=== PATIENT | female | born 1955 | race Caucasian/White ===

== ENCOUNTER 2022-07-25 14:42 | Inpatient (IN) | payer MEDICARE, OTHER ==
[~2022-07-25] VITALS: Ht 162.6 cm; Wt 20.2 kg
[2022-07-25] MEDS ORDERED: AZITHROMYCIN 500 MG in DEXT 5% WATER 250 ML IV STA (16:40)
[2022-07-25] MEDS ORDERED: CEFTRIAXONE 1 G PREMIX 50 ML IV ONE (16:45)
[2022-07-25] MEDS ORDERED: AZITHROMYCIN 500MG/250ML 250 ML IV NR (17:00)
[2022-07-25] MEDS ORDERED: SODIUM CHLORIDE 0.9% 1,000 ML IV ONE (17:15)
[2022-07-25] MEDS ORDERED: DIPHENHYDRAMINE 50MG/ML VIAL IV PRN (17:45)
[2022-07-25] MEDS ORDERED: ONDANSETRON HCL 4MG/2ML INJ IV PRN (17:45)
[2022-07-25] MEDS ORDERED: ACETAMINOPHEN 325MG TABLET PO PRN (17:45)
[2022-07-25] MEDS ORDERED: SODIUM CHLORIDE 0.9% 1,000 ML IV SCH (17:45)
[2022-07-25] MEDS ORDERED: CLONIDINE 0.1MG TABLET PO PRN (17:45)
[2022-07-25] MEDS ORDERED: IPRATROPIUM/ALBUTEROL 0.5-3(2.5)MG/3ML NEB HHN PRN (17:45)
[2022-07-25] MEDS ORDERED: CEFTRIAXONE 1 G PREMIX 50 ML IV SCH (17:45)
[2022-07-25 18:40] LABS: CHLORIDE 123 mEq/L (98-107)
[2022-07-25 18:41] LABS: HEMATOCRIT. 26.9 % (36.0-48.0); HEMOGLOBIN. 8.1 g/dL (12.0-16.0); MEAN CORPUSCULAR HEMOGLOBIN 30.8 pg (28.0-32.0); MEAN PLATELET VOLUME 12.4 fl (7.4-10.4); RED BLOOD CELL COUNT 2.61 mill/uL (4.2-5.4)
[2022-07-25 18:50] LABS: PLATELET 8 x1000/uL (130-400)
[2022-07-25 19:05] LABS: D-DIMER 20.09 mg/L FEU (<0.50); INR 1.4; PROTHROMBIN TIME 14.4 sec (9.6-11.0)
[2022-07-25 19:17] LABS: NUCLEATED RED BLOOD CELLS 12 /100 WBC; PLATELET ESTIMATE MARKEDLY DECREASED
[2022-07-25] MEDS ORDERED: DEXTROSE 5% WATER 1,000 ML IV SCH (20:15)
[2022-07-25] MEDS ORDERED: LORAZEPAM 2MG/ML CPJ ONE (22:43)
[2022-07-25] MEDS ORDERED: NOREPINEPHRINE 8MG/250ML PMX 250 ML IV PRN (22:45)
[2022-07-26] VITALS (83 sets, daily range): BP systolic 76–132; BP diastolic 43–80
[2022-07-26] MEDS ORDERED: NALOXONE HCL 0.4MG/ML VIAL IV PRN (04:15)
[2022-07-26] MEDS ORDERED: NOREPINEPHRINE 8 MG in DEXT 5% WATER 242 ML IV PRN (04:15)
[2022-07-26 05:53] LABS: HEMATOCRIT. 27.1 % (36.0-48.0); HEMOGLOBIN. 8.4 g/dL (12.0-16.0); MEAN CORPUSCULAR HEMOGLOBIN 30.7 pg (28.0-32.0); MEAN CORPUSCULAR VOLUME 99.4 fL (81.0-99.0); PLATELET 60 x1000/uL (130-400); RED BLOOD CELL COUNT 2.73 mill/uL (4.2-5.4); RED CELL DISTRIBUTION WIDTH 23.3 % (11.6-14.6)
[2022-07-26 06:05] LABS: CHLORIDE 121 mEq/L (98-107)
[2022-07-26] MEDS: MORPHINE SULFATE 2 MG/ML CPJ (NOT FOR IM USE) IV PRN (08:21)
[2022-07-26] MEDS ORDERED: SODIUM BICARBONATE 8.4% 1 MEQ/ML 50ML SYR IV NR (10:00)
[2022-07-26 10:09] LABS: NUCLEATED RED BLOOD CELLS 18 /100 WBC; PLATELET ESTIMATE MARKEDLY DECREASED
[2022-07-26 10:59] LABS: CLARITY URINE TURBID (CLEAR); COLOR URINE DARK YELLOW (YELLOW); KETONES URINE TRACE (NEGATIVE); LEUKOCYTE ESTERASE URINE 1+ (NEGATIVE); NITRITE URINE NEGATIVE (NEGATIVE); OCCULT BLOOD URINE 1+ (NEGATIVE); PROTEIN URINE 2+ (NEGATIVE); SPECIFIC GRAVITY URINE 1.018 (1.005-1.030)
[2022-07-26 11:00] LABS: BG BASE EXCESS -6.4 mmol/L (-2.0-2.0); BG CARBOXYHEMOGLOBIN 0.3 % (0.5-1.5); BG DEOXYHEMOGLOBIN 9.4 % (0.0-5.0); BG FRACTION INSPIRED OXYGEN 100; BG HCO3 ACT 19.9 mmol/L (22.0-26.0); BG METHEMOGLOBIN 0.3 % (0.0-1.5); BG OXYGEN SATURATION 90.5 % (92.0-98.5); BG PCO2 43.2 mmHg (35.0-45.0); BG PH 7.281 (7.350-7.450); BG PO2 68.5 mmHg (75.0-100.0); BG SAMPLE SITE RIGHT BRACHIAL; BG TOTAL HEMOGLOBIN 8.3 g/dL (12.0-18.0); BG VENT MODE MASK - NRB
[2022-07-26] MEDS: SODIUM BICARBONATE 100 MEQ in DEXTROSE 5% WATER 1,000 ML IV SCH (11:26)
[2022-07-26 14:01] LABS: CREATINE KINASE 888 IU/L (26-192)
[2022-07-26 14:56] LABS: AMYLASE 103 IU/L (25-115)
[2022-07-26] MEDS: PANTOPRAZOLE SODIUM 40 MG/VIAL IV SCH (15:39)
[2022-07-26] MEDS: CEFTRIAXONE 1,000 MG in DEXTROSE 5% WATER 50 ML IV SCH (15:39)
[2022-07-26] MEDS ORDERED: AZITHROMYCIN 500 MG in DEXT 5% WATER 250 ML IV SCH (18:00)
[2022-07-26] MEDS ORDERED: SODIUM POLYSTYRENE SULFONATE 15 G/60 ML BOT PO NR (19:00)
[2022-07-26] MEDS: NOREPINEPHRINE 32 MG in DEXT 5% WATER 218 ML IV PRN (19:45)
[2022-07-26] MEDS: AZITHROMYCIN 500 MG in DEXT 5% WATER 250 ML IV SCH (20:53)
[2022-07-26 21:02] LABS: VITAMIN B12 SERUM > 2000.0 pg/mL (211-911)
[2022-07-27] VITALS (96 sets, daily range): BP systolic 54–132; BP diastolic 31–85
[2022-07-27] MEDS: SODIUM BICARBONATE 100 MEQ in DEXTROSE 5% WATER 1,000 ML IV SCH ×2 (04:55→23:49)
[2022-07-27 06:00] LABS: CHLORIDE 114 mEq/L (98-107)
[2022-07-27] MEDS: PANTOPRAZOLE SODIUM 40 MG/VIAL IV SCH (08:05)
[2022-07-27] MEDS: MORPHINE SULFATE 2 MG/ML CPJ (NOT FOR IM USE) IV PRN (08:18)
[2022-07-27 08:46] LABS: BG BASE EXCESS -7.2 mmol/L (-2.0-2.0); BG CARBOXYHEMOGLOBIN 0.3 % (0.5-1.5); BG DEOXYHEMOGLOBIN 0.8 % (0.0-5.0); BG FRACTION INSPIRED OXYGEN 100; BG HCO3 ACT 18.9 mmol/L (22.0-26.0); BG METHEMOGLOBIN 0.2 % (0.0-1.5); BG OXYGEN SATURATION 99.2 % (92.0-98.5); BG OXYHEMOGLOBIN 98.7 % (94.0-97.0); BG PCO2 40.7 mmHg (35.0-45.0); BG PH 7.285 (7.350-7.450); BG PO2 221.5 mmHg (75.0-100.0); BG SAMPLE SITE RIGHT RADIAL; BG TOTAL HEMOGLOBIN 10.2 g/dL (12.0-18.0); BG VENT MODE MASK - BIPAP
[2022-07-27] MEDS ORDERED: FUROSEMIDE 20MG/2ML VIAL IVP NR (11:00)
[2022-07-27] MEDS: NOREPINEPHRINE 32 MG in DEXT 5% WATER 218 ML IV PRN (11:16)
[2022-07-27 11:28] LABS: FERRITIN > 1650 ng/mL (10-291)
[2022-07-27] MEDS ORDERED: FUROSEMIDE 40MG/4ML VIAL IVP SCH (15:15)
[2022-07-27] MEDS: CEFTRIAXONE 1,000 MG in DEXTROSE 5% WATER 50 ML IV SCH (16:01)
[2022-07-27 16:07] LABS: BASOPHILS % 0.4 % (0.0-2.0); EOSINOPHILS % 0.5 % (0.0-5.0); HEMATOCRIT. 27.2 % (36.0-48.0); HEMOGLOBIN. 8.2 g/dL (12.0-16.0); LYMPHOCYTES % 20.1 % (20.0-50.0); MEAN CORPUSCULAR HEMOGLOBIN 30.7 pg (28.0-32.0); MEAN CORPUSCULAR VOLUME 101.9 fL (81.0-99.0); MONOCYTES % 9.9 % (2.0-8.0); NEUTROPHILS % 69.1 % (40.0-76.0); RED BLOOD CELL COUNT 2.67 mill/uL (4.2-5.4); RED CELL DISTRIBUTION WIDTH 23.8 % (11.6-14.6)
[2022-07-27 17:44] LABS: PLATELET ESTIMATE MARKEDLY DECREASED
[2022-07-27 17:47] LABS: MEAN PLATELET VOLUME 10.3 fl (7.4-10.4); PLATELET 26 x1000/uL (130-400)
[2022-07-27] MEDS: CEFEPIME 2,000 MG in DEXT 5% WATER 100 ML IV SCH (19:57)
[2022-07-27] MEDS: AZITHROMYCIN 500 MG in DEXT 5% WATER 250 ML IV SCH (20:45)
[2022-07-28] VITALS (56 sets, daily range): BP systolic 47–185; BP diastolic 29–165
[2022-07-28] MEDS: NOREPINEPHRINE 32 MG in DEXT 5% WATER 218 ML IV PRN ×2 (05:33→16:31)
[2022-07-28 06:17] LABS: HEMATOCRIT. 24.3 % (36.0-48.0); HEMOGLOBIN. 7.6 g/dL (12.0-16.0); MEAN CORPUSCULAR HEMOGLOBIN 30.9 pg (28.0-32.0); MEAN PLATELET VOLUME 10.1 fl (7.4-10.4); RED BLOOD CELL COUNT 2.48 mill/uL (4.2-5.4); RED CELL DISTRIBUTION WIDTH 22.5 % (11.6-14.6)
[2022-07-28] MEDS ORDERED: DEXTROSE 5% WATER 1,000 ML IV SCH (07:30)
[2022-07-28 08:48] LABS: PLATELET 19 x1000/uL (130-400)
[2022-07-28] MEDS: PANTOPRAZOLE SODIUM 40 MG/VIAL IV SCH (09:20)
[2022-07-28] MEDS: FUROSEMIDE 40MG/4ML VIAL IVP SCH ×2 (11:00→17:15)
[2022-07-28 13:09] LABS: BG BASE EXCESS -3.3 mmol/L (-2.0-2.0); BG CARBOXYHEMOGLOBIN 0.3 % (0.5-1.5); BG DEOXYHEMOGLOBIN 0.4 % (0.0-5.0); BG FRACTION INSPIRED OXYGEN 100; BG HCO3 ACT 22.4 mmol/L (22.0-26.0); BG METHEMOGLOBIN 0.3 % (0.0-1.5); BG OXYGEN SATURATION 99.6 % (92.0-98.5); BG PCO2 43.2 mmHg (35.0-45.0); BG PH 7.333 (7.350-7.450); BG PO2 333.3 mmHg (75.0-100.0); BG SAMPLE SITE RIGHT RADIAL; BG TOTAL HEMOGLOBIN 8.7 g/dL (12.0-18.0); BG TOTAL RESPIRATORY RATE 21 b/min; BG VENT MODE MASK - BIPAP
[2022-07-28] MEDS ORDERED: BISACODYL 10MG SUPP PR NR (13:45)
[2022-07-28] MEDS: MORPHINE SULFATE 2 MG/ML CPJ (NOT FOR IM USE) IV PRN (14:18)
[2022-07-28] MEDS: METOCLOPRAMIDE HCL 10MG/2ML VIAL IV SCH ×2 (14:18→18:03)
[2022-07-28] MEDS: AZITHROMYCIN 500 MG in DEXT 5% WATER 250 ML IV SCH (20:00)
[2022-07-28] MEDS: CEFEPIME 2,000 MG in DEXT 5% WATER 100 ML IV SCH (20:00)
[2022-07-29] VITALS (90 sets, daily range): BP systolic 41–123; BP diastolic 27–65
[2022-07-29] MEDS: METOCLOPRAMIDE HCL 10MG/2ML VIAL IV SCH ×3 (00:14→14:30)
[2022-07-29 05:48] LABS: HEMATOCRIT. 25.2 % (36.0-48.0); HEMOGLOBIN. 7.6 g/dL (12.0-16.0); MEAN CORPUSCULAR HEMOGLOBIN 31.1 pg (28.0-32.0); MEAN CORPUSCULAR VOLUME 103.3 fL (81.0-99.0); MEAN PLATELET VOLUME 9.8 fl (7.4-10.4); RED BLOOD CELL COUNT 2.44 mill/uL (4.2-5.4); RED CELL DISTRIBUTION WIDTH 23.6 % (11.6-14.6)
[2022-07-29 06:36] LABS: PLATELET 15 x1000/uL (130-400)
[2022-07-29] MEDS ORDERED: BISACODYL 10MG SUPP PR PRN (07:00)
[2022-07-29 08:59] LABS: NUCLEATED RED BLOOD CELLS 66 /100 WBC
[2022-07-29 09:00] LABS: PLATELET ESTIMATE DECREASED
[2022-07-29] MEDS: PANTOPRAZOLE SODIUM 40 MG/VIAL IV SCH (09:31)
[2022-07-29] MEDS: FUROSEMIDE 40MG/4ML VIAL IVP SCH (09:34)
[2022-07-29] MEDS: NOREPINEPHRINE 32 MG in DEXT 5% WATER 218 ML IV PRN ×2 (10:57→22:07)
[2022-07-29 11:32] LABS: NUCLEATED RED BLOOD CELLS 23 /100 WBC; PLATELET ESTIMATE MARKEDLY DECREASED
[2022-07-29] MEDS ORDERED: FUROSEMIDE 100MG/10ML VIAL IVP NR (13:30)
[2022-07-29] MEDS: MORPHINE SULFATE 2 MG/ML CPJ (NOT FOR IM USE) IV PRN (14:41)
[2022-07-29] MEDS ORDERED: MIDODRINE HCL 5MG TABLET PO SCH (17:00)
[2022-07-29] MEDS: CEFEPIME 2,000 MG in DEXT 5% WATER 100 ML IV SCH (18:38)
[2022-07-29] MEDS: PHENYLEPHRINE 100 MG in DEXT 5% WATER 240 ML IV PRN (18:51)
[2022-07-29] MEDS: AZITHROMYCIN 500 MG in DEXT 5% WATER 250 ML IV SCH (20:55)
[2022-07-29] MEDS: VASOPRESSIN 20 UNIT in SODIUM CHLORIDE 0.9% 99 ML IV PRN (23:06)
[2022-07-30] VITALS (9 sets, daily range): BP systolic 26–90; BP diastolic 13–38
[2022-07-30 06:27] LABS: HEMATOCRIT. 22.3 % (36.0-48.0); MEAN CORPUSCULAR HEMOGLOBIN 30.4 pg (28.0-32.0); MEAN CORPUSCULAR VOLUME 107.5 fL (81.0-99.0); MEAN PLATELET VOLUME 11.6 fl (7.4-10.4); RED BLOOD CELL COUNT 2.07 mill/uL (4.2-5.4); RED CELL DISTRIBUTION WIDTH 24.5 % (11.6-14.6)
[2022-07-30 06:39] LABS: HEMOGLOBIN. 6.3 g/dL (12.0-16.0); PLATELET 8 x1000/uL (130-400)
[2022-07-30] MEDS: PHENYLEPHRINE 100 MG in DEXT 5% WATER 240 ML IV PRN (06:47)
[2022-07-30] MEDS: VASOPRESSIN 20 UNIT in SODIUM CHLORIDE 0.9% 99 ML IV PRN (07:43)
[2022-07-30 09:25] LABS: NUCLEATED RED BLOOD CELLS 82 /100 WBC; PLATELET ESTIMATE MARKEDLY DECREASED
== END 2022-07-30 07:59 | DRG 720 ==
LOC: ER 14:42 → 5EST 16:42 → ENRESERV 17:16 → MICUSO 07-26 00:03 → CVICU 07-26 03:10
PROVIDERS: ADMIT Internal Medicine; ATTEND Internal Medicine
PROC: 30233N1 Transfusion of Nonautologous Red Blood Cells into Peripheral Vein, Percutaneous Approach (ICD-10-PCS; principal; 2022-07-25)
PROC: 5A09457 Assistance with Respiratory Ventilation, 24-96 Consecutive Hours, Continuous Positive Airway Pressure (ICD-10-PCS; 2022-07-27)
DX: A41.9 Sepsis, unspecified organism (principal); N17.0 Acute kidney failure with tubular necrosis; J96.01 Acute respiratory failure with hypoxia; J69.0 Pneumonitis due to inhalation of food and vomit; R65.21 Severe sepsis with septic shock; K85.90 Acute pancreatitis without necrosis or infection, unspecified; D61.818 Other pancytopenia; G93.41 Metabolic encephalopathy; R64 Cachexia; Z20.822 Contact with and (suspected) exposure to COVID-19; E43 Unspecified severe protein-calorie malnutrition; R62.7 Adult failure to thrive; D69.6 Thrombocytopenia, unspecified; E87.0 Hyperosmolality and hypernatremia; I95.9 Hypotension, unspecified; D68.9 Coagulation defect, unspecified; D63.1 Anemia in chronic kidney disease; R74.01 Elevation of levels of liver transaminase levels; C78.7 Secondary malignant neoplasm of liver and intrahepatic bile duct; K56.7 Ileus, unspecified; N18.9 Chronic kidney disease, unspecified; E88.09 Other disorders of plasma-protein metabolism, not elsewhere classified; J90 Pleural effusion, not elsewhere classified; N39.0 Urinary tract infection, site not specified; E87.5 Hyperkalemia; Z66 Do not resuscitate; I07.1 Rheumatic tricuspid insufficiency; J84.9 Interstitial pulmonary disease, unspecified; Z68.1 Body mass index [BMI] 19.9 or less, adult; Z85.3 Personal history of malignant neoplasm of breast; Z92.21 Personal history of antineoplastic chemotherapy; Z92.3 Personal history of irradiation
CPT/HCPCS: 36415; 36600; 71045; 71250; 74018; 74176; 76700; 78580; 80048; 80053; 80076; 81003; 82150; 82375; 82550; 82607; 82728; 82746; 82805; 83540; 83550; 83605; 83880; 84145; 84484; 85025; 85044; 85379; 86850; 86900; 87426; 87804; 93005; 93306; 94640; 94660; 99291; C9113; J0456; J0692; J0696; J1940; J2060; J2270; J2370; J2765; J3490; J7030; J7050; J7060; J7070; P9034; A4315